=== PATIENT | female | born 1935 | race Caucasian/White ===

== ENCOUNTER 2019-05-06 19:11 | Emergency (ER) | payer OTHER, MEDICAID ==
[~2019-05-06] VITALS: Ht 167.6 cm; Wt 67.1 kg
[2019-05-06 19:12] VITALS: BP_SYST 172
--- NOTE | 2019-05-06 19:25 | NUR ---
Patient to ER bed 3 for evaluation. Side rails up.
--- NOTE | 2019-05-06 19:27 | NUR ---
Patient brought in by BLS transport from [facility] for medical clearance prior to being sent to [place] for increased agitation. Patient has history of Major Depression and dementia. Patient was give 0.5 mg of Ativan at 1800. No voiced complaints at this time. Denies any pain. No other complaints/injuries per patient or as noted. Will continue to monitor.
--- NOTE | 2019-05-06 19:39 | NUR ---
Blood for labwork drawn from L arm. Patient tolerated well.
[2019-05-06 20:02] LABS: ANION GAP 7 (5-15); CALCIUM 9.7 mg/dL (8.4-11.0); CHLORIDE 105 mmol/L (98-107); CREATININE 1.13 mg/dL (0.55-1.30); GLUCOSE 150 mg/dL (70-99); POTASSIUM 3.8 mmol/L (3.5-5.1); SODIUM SERUM 134 mmol/L (136-145); UREA NITROGEN, BLOOD 20 mg/dL (8-21)
[2019-05-06 20:06] LABS: ALANINE AMINOTRANSFERASE 12 U/L (12-78); ASPARTATE AMINOTRANSFERASE 17 U/L (10-37); TOTAL BILIRUBIN 0.4 mg/dL (0.0-1.0)
[2019-05-06 20:07] LABS: ALBUMIN 3.5 g/dL (3.4-4.8); ALCOHOL, BLOOD < 3 mg/dL (<10); CHOLESTEROL 113 mg/dL (<200); HDL CHOLESTEROL 47 mg/dL (>55); LDL CHOLESTEROL 54 mg/dL (<100); TRIGLYCERIDES 76 mg/dL (30-150)
[2019-05-06 20:19] LABS: BASOPHILS # (AUTO) 0.1 K/uL (0.0-0.2); BASOPHILS % (AUTO) 1.5 % (0.0-2.0); EOSINOPHILS # (AUTO) 0.2 K/uL (0.0-0.4); EOSINOPHILS % (AUTO) 2.7 % (0.0-4.0); HEMOGLOBIN 10.9 g/dL (12.0-16.0); LYMPHOCYTES # (AUTO) 2.4 K/uL (1.0-5.5); MEAN CORPUSCULAR HEMOGLOBIN 29 pg (27-31); MEAN CORPUSCULAR HGB CONC 33 % (32-36); MEAN CORPUSCULAR VOLUME 88 fL (79.0-98.0); MONOCYTES # (AUTO) 0.5 K/uL (0.0-1.0); MONOCYTES % (AUTO) 8.8 % (1.7-9.3); NEUTROPHILS # (AUTO) 2.8 K/uL (1.8-7.7); PLATELET COUNT (AUTO) 265 K/uL (130-430); RED BLOOD CELL COUNT(AUTO) 3.75 MIL/uL (4.2-6.2); RED CELL DISTRIBUTION WIDTH 14.3 % (9.0-15.0)
[2019-05-06 20:25] LABS: ACETAMINOPHEN < 1 ug/mL (1-30)
[2019-05-06 20:26] LABS: THYROID STIMULATING HORMONE 1.76 uIu/mL (0.34-4.82)
--- NOTE | 2019-05-06 20:45 | NUR ---
Pt assisted to the restroom using wheelchair and stand-pivot assist. Pt tolerated movement well. Pt confused.
--- NOTE | 2019-05-06 20:55 | NUR ---
MRSA Screen Nasal swab performed. Sent to Lab. Pt tolerated well
[2019-05-06 21:04] LABS: BILIRUBIN,URINE NEGATIVE (NEGATIVE); BLOOD, URINE 1+ (NEGATIVE); CLARITY/URINE CLOUDY (CLEAR); COLOR,URINE YELLOW (YELLOW); GLUCOSE,URINE NEGATIVE (NEGATIVE); KETONES,URINE NEGATIVE (NEGATIVE); LEUKOCYTE ESTERASE ,URINE 3+ (NEGATIVE); NITRITE, URINE NEGATIVE (NEGATIVE); PROTEIN URINE NEGATIVE (NEGATIVE); UROBILINOGEN,URINE 0.2 (0.2-1.0)
[2019-05-06 21:24] LABS: BARBITURATE, URINE NEGATIVE (NEG <=200); BENZODIAZEPINE, URINE POSITIVE (NEG <=150); CANNABINOID, URINE NEGATIVE (NEG <=50); COCAINE, URINE NEGATIVE (NEG <=150); METHAMPHETAMINES SCREEN,URINE NEGATIVE (NEG <=500); OPIATE, URINE NEGATIVE (NEG <=100); PHENCYCLIDINE SCREEN,URINE NEGATIVE (NEG <=25); UR TRICYCLIC ANTIDEPRESSANTS NEGATIVE (NEG <=300); URINE AMPHETAMINE NEGATIVE (NEG <=500); URINE METHADONE NEGATIVE (NEG <=200); URINE OXYCODONE SCREEN NEGATIVE (NEG <=100); URINE PROPOXYPHENE SCREEN NEGATIVE (NEG <=300)
--- NOTE | 2019-05-06 21:30 | NUR ---
Pt given 2 additional warm blankets for comfort. Pt also requested Ice-water and crackers. Pt was provided with requested items. Pt Tolerating well. VSS, will continue to monitor.
[2019-05-06 21:33] LABS: BACTERIA,URINE FEW /HPF (None Seen); MUCUS,URINE None Seen /LPF (None Seen)
[2019-05-06 21:34] LABS: URINE AMORPHOUS URATE 1+ /HPF (None Seen)
--- NOTE | 2019-05-06 21:42 | NUR ---
PT resting in bed. Pt is confused per her normal LOC. Pt shows no acute signs of pain or distress at this time. Vss, will continue to monitor.
--- NOTE | 2019-05-06 21:53 | NUR ---
Keiry from [facility] called and asked for update on patient's status. Informed Keiry that we will call her back for update.
[2019-05-06] MEDS ORDERED: NITROFURANTOIN MONOHYD/M-CRYST 100 MG CAPSULE PO ONE (22:00)
--- NOTE | 2019-05-06 22:06 | NUR ---
Phlebotomy Bedside drawing Lactic Acid blood sample
--- NOTE | 2019-05-07 00:06 | NUR ---
trPatient to be transferred to [facility]. Is being transferred due to higher level of care. Receiving facility has accepting physician and available space. ER physician has signed transfer form. Patient or responsible alliance party has agreed to transfer and signed form. Patient belongings inventoried and will be sent with patient. Copy of nursing notes, lab reports, EKG, Physicians Orders and X-rays to be sent with patient. Report called to Keiry at receiving facility. Receiving physician is Alexandre. [facility] has been called for transfer. Care has arrived for pickup.
[2019-05-07 00:07] VITALS: BP_SYST 170
== END 2019-05-07 00:06 | disposition home or self-care (01) ==
LOC: SED 19:11
DX: F32.9 Major depressive disorder, single episode, unspecified (principal); N39.0 Urinary tract infection, site not specified; I10 Essential (primary) hypertension
CPT/HCPCS: 36415; 80053; 80061; 80307; 81000; 82550; 83036; 83605; 84439; 84443; 84484; 85025; 87081; 87086; 93005; 99284; G0480; G0481; G0482

== ENCOUNTER 2019-05-12 10:40 | Outpatient (CLI) | payer OTHER | END 2019-05-12 19:32 | disposition home or self-care (01) | LOC: SLB 10:40 | PROVIDERS: ATTEND Psychiatry & Neurology Psychiatry | DX: Z00.00 Encounter for general adult medical examination without abnormal findings (principal) | CPT/HCPCS: 87081 ==